=== PATIENT | male | born 1985 | race Caucasian/White ===

== ENCOUNTER 2019-10-27 02:19 | Emergency (ER) | payer SELFPAY ==
[2019-10-27] MEDS ORDERED: Bupivacaine PF 0.5% 30 ML VIAL ONE (03:29)
== END 2019-10-27 03:55 | disposition home or self-care (01) ==
LOC: MADERS 02:19
DX: K08.89 Other specified disorders of teeth and supporting structures (principal); M54.5 Low back pain
CPT/HCPCS: 64400; S0020